=== PATIENT | male | born 1950 | race Caucasian/White ===

== ENCOUNTER 2017-10-05 07:17 | Day surgery (SDC) | payer OTHER ==
[2017-10-05] MEDS ORDERED: ALCAINE or OPHTHETIC 1 DOSE AFFEYE ONE (07:33)
[2017-10-05] MEDS ORDERED: ALPHAGAN-P OPHTH 1 DOSE AFFEYE ONE (07:38)
[2017-10-05] MEDS ORDERED: TETRACAINE 0.5% OPHTH 1 DOSE AFFEYE ONE (08:57)
[2017-10-05 12:40] VITALS: BP 137/80
== END 2017-10-05 09:15 | disposition home or self-care (01) ==
LOC: SURG1 07:17
PROVIDERS: ATTEND Ophthalmology
PROC: 08QC3ZZ Repair Right Iris, Percutaneous Approach (ICD-10-PCS; principal; 2017-10-05 11:45)
DX: H40.1110 Primary open-angle glaucoma, right eye, stage unspecified (principal)
CPT/HCPCS: 65855

== ENCOUNTER 2017-11-02 08:11 | Day surgery (SDC) | payer OTHER ==
[2017-11-02] MEDS ORDERED: TETRACAINE 0.5% OPHTH 1 DOSE AFFEYE ONE ×2 (08:20→08:51)
[2017-11-02] MEDS ORDERED: ALPHAGAN-P OPHTH 1 DOSE AFFEYE ONE (08:20)
[2017-11-02 10:32] VITALS: BP 140/88
== END 2017-11-02 09:00 | disposition home or self-care (01) ==
LOC: SURG1 08:11
PROVIDERS: ATTEND Ophthalmology
PROC: 08QD3ZZ Repair Left Iris, Percutaneous Approach (ICD-10-PCS; principal; 2017-11-02 10:45)
DX: H40.1122 Primary open-angle glaucoma, left eye, moderate stage (principal)
CPT/HCPCS: 65855

== ENCOUNTER 2025-02-02 22:16 | Inpatient (IN) ==
[2025-02-02 22:53] VITALS: BMI 24.9
[2025-02-03 00:14] LABS: BILIRUBIN,URINE 2+ (NEGATIVE); BLOOD/HEMOGLOBIN,URINE 1+ (NEGATIVE); GLUCOSE, URINE 2+ (NEGATIVE); KETONES,URINE 1+ (NEGATIVE); LEUKOCYTE ESTERASE ,URINE 1+ (NEGATIVE); NITRITES,URINE NEGATIVE (NEGATIVE); PROTEIN,URINE 3+ (NEGATIVE); UROBILINOGEN,URINE 3+ (NORMAL)
[2025-02-03 00:21] LABS: APPEARANCE,URINE CLEAR (CLEAR); COLOR,URINE AMBER (YELLOW)
[2025-02-03 00:22] LABS: BACTERIA,URINE TRACE /HPF (NEGATIVE); RBC,URINE NONE SEEN /HPF (0-3); SQUAMOUS EPITHELIAL CELL,UR FEW /HPF (NEGATIVE)
--- NOTE | 2025-02-03 00:31 | DR.URIAD ---
HPI Time Seen Time Seen by Provider: 02/02/25 23:10 PCP Primary Care Physician: Dr. Castillo HPI Comment HPI Comment: Patient brought to ER with 4-day history of vague abdominal discomfort complaints, nausea and vomiting. Patient also has had some sinus congestion with runny nose. Vomiting intensified today along with some fever. Patient has been having some forgetfulness and possibly confusion but family clarified and described it more as forgetful. Complaint Chief Complaint:: Patient brought in er via WC with complaints of sinus congestion and vomiting. Pt states he went to a on thursday and thursday night began throwing up. Pt states he has had intermittent episodes on vomiting since thursday. Pt also complains of runny nose, sinus pressure, and fever. Per pts family pt has been slightly confused and weak. Self Treatment fo Chief Complaint: Tylenol around 2129 COVID-19 Coronavirus risk:travel/contact w/high risk person: No Has patient experienced Coronavirus symptoms: Yes Coronavirus symptoms experienced: Fever Source History Provided: Patient and Family Member Mode of Arrival Mode of Arrival: Wheelchair Timing Onset of Chief Complaint: 01/30/25 PMH PMH Past Medical History: Yes Past Medical History: Diabetes, GERD and Hypertension Past Surgical History: Yes Surgical History: Tonsillectomy Past Surgical History Comment: Cataract surgery Family History History of Family Medical Conditions: Yes Family Medical History: Hypertension Social History Does patient currently use any type of tobacco product: No Have you used tobacco products in the last 12 months: No Type of Tobacco Use: None Does any household member use tobacco: No Alcohol Use: None Do you use any recreational Drugs:: No Lives With: Family Lives Where: Home Travel Risk Coronavirus risk:travel/contact w/high risk person: No Has patient experienced Coronavirus symptoms: Yes Coronavirus symptoms experienced: Fever Infectious screening Have you traveled outside the country in the last 6 months?: No Isolation: Standard ROS Review of Systems Constitutional: See HPI and Fever Eyes: No Symptoms Reported ENTM: No Symptoms Reported Respiratoy: No Symptoms Reported Cardiovascular: No Symptoms Reported Gastrointestinal/Abdominal: See HPI, Abdominal Pain, Nausea and Vomiting; negative Constipation or Diarrhea Genitourinary: No Symptoms Reported Neurological: No Symptoms Reported Musculoskeletal: No Symptoms Reported Integumentary: No Symptoms Reported Hematologic/Lymphatic: No Symptoms Reported Endocrine: No Symptoms Reported Psychiatric: No Symptoms Reported All Other Systems: Reviewed and Negative PE Vital Signs Vitals: Vital Signs Temperature 98.3 F Temperature 100.2 F Pulse Rate [Left] 78 Pulse Rate 107 Respiratory Rate 19 Blood Pressure [Left Arm] 115/61 Blood Pressure 131/66 O2 Sat by Pulse Oximetry 97 O2 Sat by Pulse Oximetry 93 General Limitations: No Limitations General Appearance: Alert and In No Apparent Distress Head Head Exam: Normal Inspection Eyes Eye exam: Normal Appearance ENT ENT Exam: Normal Exam External Ear Exam: Normal External Inspection TM/Canal Exam: Bilateral: Normal Nose Exam: Other (Nasal turbinate erythema with clear discharge) Mouth Exam: Normal Inspection Throat Exam: Normal Inspection Neck Neck Exam: Normal Inspection Chest Chest Inspection: Normal Inspection Respiratory Respiratory Exam: Normal Lung Sounds Bilat Respiratory Exam: Bilateral: Clear to Auscultation Cardiovascular Cardiovascular Exam: Regular Rate and Normal Rhythm Abdominal Exam Abdominal Exam: Normal Inspection, Normal Bowel Sounds, Soft and Tenderness (Mild right upper quadrant tenderness to deep palpation); negative Distention, Guarding, Rebound or Rigidity Extremeties Extremities Exam: Normal Inspection Back Back Exam: Normal Inspection Neurologic Neurological Exam: Alert and Oriented X3 Psychiatric Psychiatric Exam: Normal Affect and Normal Mood Skin Skin Exam: Warm, Dry, Intact and Normal Color COURSE Treatment Treatment: Patient has had some improvement with fluids and magnesium. He does have an elevated white count and found to have cholelithiasis and CT. Given hyperbilirubinemia and neutrophilia along with fevers and feel like coverage for possible cholangitis even though not seen in CT might be prudent. Consultation Called: 03:26 Consultation Comments: Discussed case with Dr. Castillo and he is agreeable to admission with cefepime and Flagyl. ROR Labs Reviewed 02/03/25 00:42 02/03/25 00:42 Laboratory: WBC 23.4 X10^3/uL (3.6-10.0) H 02/03/25 00:42 RBC 4.86 X10^6/uL (4.7-6.0) 02/03/25 00:42 Hgb 14.3 g/dL (13.5-18.0) 02/03/25 00:42 Hct 41.5 % (42.0-54.0) L 02/03/25 00:42 MCV 85.5 fL (80.0-100.0) 02/03/25 00:42 MCH 29.4 pg (27.0-34.0) 02/03/25 00:42 MCHC 34.4 g/dL (33.0-35.0) 02/03/25 00:42 RDW 13.8 % (11.6-16.5) 02/03/25 00:42 Plt Count 223 X10^3/uL (150.0-450.0) 02/03/25 00:42 Plt Count Comment Adequate (ADEQUATE) 02/03/25 00:42 MPV 7.9 fL (7.4-11.0) 02/03/25 00:42 Neut % (Auto) 90.6 % (42.0-75.0) H 02/03/25 00:42 Lymph % (Auto) 2.1 % (21.0-51.0) L 02/03/25 00:42 [place] % (Auto) 7.1 % (0.0-13.0) 02/03/25 00:42 Eos % (Auto) 0.0 % (0.9-2.9) L 02/03/25 00:42 Baso % (Auto) 0.2 % (0.2-1.0) 02/03/25 00:42 Neut # (Auto) 21.1 x10^3/uL (2.2-4.8) H 02/03/25 00:42 Lymph # (Auto) 0.5 X10^3/uL (1.3-2.9) L 02/03/25 00:42 [place] # (Auto) 1.7 x10^3/uL (0.3-0.8) H 02/03/25 00:42 Eos # (Auto) 0.0 x10^3/uL (0.0-0.2) 02/03/25 00:42 Baso # (Auto) 0.1 X10^3/uL (0.0-0.1) 02/03/25 00:42 Absolute Nucleated RBC 0.0 /100WBC 02/03/25 00:42 Total Counted 100 02/03/25 00:42 Neutrophils % (Manual) 83 % (39-76) H 02/03/25 00:42 Band Neutrophils % 7 % (0-10) 02/03/25 00:42 Lymphocytes % (Manual) 3 % (13-43) L 02/03/25 00:42 Monocytes % (Manual) 7 % (4-9) 03 00:42 Plt Morphology Comment Normal (NORMAL) 02/03/25 00:42 RBC Morphology Normal (NORMAL) 02/03/25 00:42 Sodium 137 mmol/L (136-145) 02/03/25 00:42 Corrected Sodium 139 mmol/L (136-145) 02/03/25 00:42 Potassium 3.7 mmol/L (3.5-5.1) 02/03/25 00:42 Chloride 101 mmol/L (98-107) 02/03/25 00:42 Carbon Dioxide 27.0 mmol/L (21-32) 02/03/25 00:42 BUN 23 mg/dL (7-18) H 02/03/25 00:42 Creatinine 1.31 mg/dL (0.70-1.30) H 02/03/25 00:42 Est GFR (MDRD) Af Amer > 60 (>60) 02/03/25 00:42 Est GFR (MDRD) Non-Af 57 (>60) L 02/03/25 00:42 Glucose 179 mg/dL (65-99) H 02/03/25 00:42 Lactic Acid 1.2 mmol/L (0.4-2.0) 02/03/25 01:49 Calcium 9.2 mg/dL (8.5-10.1) 02/03/25 00:42 Corrected Calcium TNP 02/03/25 00:42 Magnesium 1.6 mg/dL (2.0-2.9) L 02/03/25 00:42 Total Bilirubin 3.30 mg/dL (0.2-1.0) H 02/03/25 00:42 AST 264 Units/L (15-37) H 02/03/25 00:42 ALT 320 Units/L (12-78) H 02/03/25 00:42 Alkaline Phosphatase 291 Units/L (46-116) H 02/03/25 00:42 Total Protein 6.9 g/dL (6.4-8.2) 02/03/25 00:42 Albumin 3.4 g/dL (3.4-5.0) 02/03/25 00:42 Globulin 3.5 g/dL (2.5-4.5) 02/03/25 00:42 Albumin/Globulin Ratio 1.0 Ratio (1.1-2.1) L 02/03/25 00:42 Specimen Type Clean catch urine 02/02/25 23: Urine Color Sangeetha (YELLOW) 02/02/25 23:25 Urine Appearance Clear (CLEAR) 02/02/25 23: Urine pH 5.0 (5.0 - 8.0) 02/02/25 23: Ur Specific [place] 1.015 (1.000-1.030) 02/02/25 23: Urine Protein 3+ (NEGATIVE) 02/02/25 23: Urine Glucose (UA) 2+ (NEGATIVE) 02/02/25: Urine Ketones 1+ (NEGATIVE) 02/02/25: Urine Blood 1+ (NEGATIVE) 02/02/25: Urine Nitrite Negative (NEGATIVE) 02/02/25 23: Urine Bilirubin 2+ (NEGATIVE) 02/02/25: Urine Urobilinogen 3+ (NORMAL) 02/02/25 23: Ur Leukocyte Esterase 1+ (NEGATIVE) 02/02/25 23:25 Urine RBC None seen /HPF (0-3) 02/02/25 23:25 Urine WBC 0-2 /HPF (0-5) 02/02/25 23:25 Ur Squamous Epith Cells Few /HPF (NEGATIVE) 02/02/25 23:25 Amorphous Sediment Trace /HPF (NEGATIVE) 02/02/25 23:25 Urine Bacteria Trace /HPF (NEGATIVE) 02/02/25 23:25 Urine Mucus Few /HPF (NEGATIVE) 02/02/25 23:25 Ur Culture Indicated? No/not indicated 02/02/25 23:25 SARS-CoV-2 (PCR) Negative (NEGATIVE) 02/02/25 23:17 Influenza Type A (PCR) Negative (NEGATIVE) 02/02/25 23:17 Influenza Type B (PCR) Negative (NEGATIVE) 02/02/25 23:17 RSV (PCR) Negative (NEGATIVE) 02/02/25 23:17 Opioid Opioid Risk Tool Age (Juan Antonio box if 16-45): No History of Preadolescent Sexual Abuse: No Total: 0 Total Score Risk Category: Low Risk Copyright: Maximino GIPSON predicting aberrant behaviors Discharge Plan Diagnosis Discharge Problem: Hyperbilirubinemia, Elevated liver function tests, Cholelithiasis, Acute neutrophilia Discharge Plan Patient Disposition: 09 ADMITTED INPATIENT Condition: Stable Prescriptions: No Action pantoprazole 40 mg tablet,delayed release (DR/EC) 40 mg PO QDAY Qty: 90 3RF valsartan 160 mg tablet 160 mg PO QDAY Qty: 30 3RF Health Concerns: Post Hospitalization: new medications and changes needed to prevent readmission or further decline. Pt educated and given instructions on all concerns. Plan of Treatment: Continue with present treatment and follow up plan. Pt is to keep follow up appointment as instructed and take medications as ordered. Orders to Discharge Patient Discharge Orders: Transfer (Routine); Ordered 02/03/25 Ordered By: Rito Murrell Follow ups/Referrals Follow ups/Referrals: Joey Castillo MD [Primary Care Provider] - 3 days Instructions Stand Alone Forms: Find Help Web Site, Post Hospital Follow Up Care
[2025-02-03 00:58] LABS: BASOPHILS # (AUTO) 0.1 X10^3/uL (0.0-0.1); BASOPHILS % (AUTO) 0.2 % (0.2-1.0); HEMATOCRIT 41.5 % (42.0-54.0); HEMOGLOBIN 14.3 g/dL (13.5-18.0); LYMPHOCYTES # (AUTO) 0.5 X10^3/uL (1.3-2.9); LYMPHOCYTES % (AUTO) 2.1 % (21.0-51.0); MEAN CORPUSCULAR HEMOGLOBIN 29.4 pg (27.0-34.0); MEAN CORPUSCULAR HGB CONC 34.4 g/dL (33.0-35.0); MEAN CORPUSCULAR VOLUME 85.5 fL (80.0-100.0); MEAN PLATELET VOLUME 7.9 fL (7.4-11.0); MONOCYTES # (AUTO) 1.7 x10^3/uL (0.3-0.8); MONOCYTES % (AUTO) 7.1 % (0.0-13.0); NEUTROPHILS # (AUTO) 21.1 x10^3/uL (2.2-4.8); NEUTROPHILS % (AUTO) 90.6 % (42.0-75.0); PLATELET COUNT 223 X10^3/uL (150.0-450.0); RED BLOOD COUNT 4.86 X10^6/uL (4.7-6.0); RED CELL DISTRIBUTION WIDTH 13.8 % (11.6-16.5); WHITE BLOOD COUNT 23.4 X10^3/uL (3.6-10.0)
[2025-02-03 01:14] LABS: ALANINE AMINOTRANSFERASE 320 Units/L (12-78); ALBUMIN 3.4 g/dL (3.4-5.0); ALKALINE PHOSPHATASE 291 Units/L (46-116); ASPARTATE AMINO TRANSFERASE 264 Units/L (15-37); BLOOD UREA NITROGEN 23 mg/dL (7-18); CALCIUM 9.2 mg/dL (8.5-10.1); CHLORIDE 101 mmol/L (98-107); COR NA(FOR HYPERGLY) 139 mmol/L (136-145); CREATININE 1.31 mg/dL (0.70-1.30); GLUCOSE 179 mg/dL (65-99); MAGNESIUM 1.6 mg/dL (2.0-2.9); POTASSIUM 3.7 mmol/L (3.5-5.1); SODIUM 137 mmol/L (136-145); TOTAL PROTEIN 6.9 g/dL (6.4-8.2); eGFR NON BLACK RACES 57 (>60)
[2025-02-03 01:17] LABS: BAND NEUTROPHILS % 7 % (0-10)
[2025-02-03 01:18] LABS: PLATELET MORPHOLOGY COMMENT NORMAL (NORMAL)
[2025-02-03] MEDS: MAGNESIUM SULFATE 1 GRAM/100 mL PREMIX 1 G/100 ML BAG IV ONE (01:44)
[2025-02-03] MEDS: NS 500 ML IV 500 ML IV ONE (01:44)
--- NOTE | 2025-02-03 02:23 | CT ---
PROCEDURE: CT Abdomen and Pelvis without IV Contrast.HISTORY: Patient brought in er via with complaints of sinus congestion and vomiting, cough, elevated white count; DM, HTN, GERD SX: TONSILS, CATARACT .TECHNIQUE: Axial images were performed through the abdomen and pelvis without the administration of IV contrast with multiplanar reformations . Oral contrast was notadministered . Dose reduction techniques including Automated Exposure Control (AEC) and adjustment of mA and kV were utilized ..COMPARISON: None.TECHNICAL QUALITY: Satisfactory.FINDINGS:Clear lung bases. Liver, spleen, adrenals, and pancreas show no significant abnormality. Kidneys show no stones or obstruction. Small stones in the fundus of the gallbladder with no inflammation and normal biliary tree. No ascites or pneumoperitoneum. Trace atherosclerosis aorta. No lymphadenopathy. 2 cm duodenal diverticulum with air-fluid level. No bowel obstruction or inflammation. Normal appendix. No pelvic masses or free fluid normal urinary bladder. No acute bony abnormality.IMPRESSION:Cholelithiasis. Small duodenal diverticulum. No other significant abnormality identified.THIS IS AN ELECTRONICALLY VERIFIED FINAL REPORT02/03/2025 2:19 AM - Electronically signed by Umesh Alcazar MD
[2025-02-03] MEDS: FLAGYL TAB 250 MG PO ONE (03:36)
[2025-02-03] MEDS: MAXIPIME VIAL 1 GRAM 1 G in NS 50 ML IV 50 ML IV ONE (03:39)
[2025-02-03] MEDS ORDERED: MAXIPIME VIAL 1 GRAM IM SCH (04:00)
[2025-02-03] MEDS ORDERED: CONSULT PHARMACY - POTASSIUM & MAGNESIUM XX SCH (04:25)
[2025-02-03] MEDS: NS 1,000 ML IV 1,000 ML IV SCH (04:50)
[2025-02-03] MEDS ORDERED: FLAGYL IV PREMIX 500 MG BAG 500 MG/100 ML BAG IV SCH (05:00)
[2025-02-03 06:27] LABS: BASOPHILS # (AUTO) 0.1 X10^3/uL (0.0-0.1); BASOPHILS % (AUTO) 0.3 % (0.2-1.0); HEMATOCRIT 40.3 % (42.0-54.0); LYMPHOCYTES % (AUTO) 4.4 % (21.0-51.0); MEAN CORPUSCULAR HEMOGLOBIN 29.8 pg (27.0-34.0); MEAN CORPUSCULAR HGB CONC 34.7 g/dL (33.0-35.0); MEAN CORPUSCULAR VOLUME 85.8 fL (80.0-100.0); MEAN PLATELET VOLUME 8.4 fL (7.4-11.0); MONOCYTES # (AUTO) 1.8 x10^3/uL (0.3-0.8); MONOCYTES % (AUTO) 8.1 % (0.0-13.0); NEUTROPHILS # (AUTO) 19.2 x10^3/uL (2.2-4.8); NEUTROPHILS % (AUTO) 87.2 % (42.0-75.0); PLATELET COUNT 221 X10^3/uL (150.0-450.0); RED CELL DISTRIBUTION WIDTH 13.9 % (11.6-16.5)
[2025-02-03 06:37] LABS: ALANINE AMINOTRANSFERASE 304 Units/L (12-78); ALBUMIN 3.3 g/dL (3.4-5.0); ALKALINE PHOSPHATASE 275 Units/L (46-116); ASPARTATE AMINO TRANSFERASE 204 Units/L (15-37); BLOOD UREA NITROGEN 22 mg/dL (7-18); CALCIUM 9.1 mg/dL (8.5-10.1); CARBON DIOXIDE 28.6 mmol/L (21-32); CHLORIDE 102 mmol/L (98-107); COR CA(FOR HYPOALB) 9.7 mg/dL (8.5-10.1); COR NA(FOR HYPERGLY) 140 mmol/L (136-145); CREATININE 1.39 mg/dL (0.70-1.30); GLUCOSE 186 mg/dL (65-99); POTASSIUM 4.5 mmol/L (3.5-5.1); SODIUM 138 mmol/L (136-145); TOTAL PROTEIN 6.8 g/dL (6.4-8.2); eGFR NON BLACK RACES 53 (>60)
[2025-02-03 07:11] LABS: PLATELET MORPHOLOGY COMMENT NORMAL (NORMAL)
[2025-02-03 07:12] LABS: BAND NEUTROPHILS % 10 % (0-10)
[2025-02-03] MEDS: NS 50 ML IV 50 ML IV ONE (07:38)
--- NOTE | 2025-02-03 07:45 | RAD ---
EXAM: Portable chest HISTORY: Cough, vomiting, leukocytosis COMPARISON: None FINDINGS: Heart size is normal. Moraima are normal. Lung sarmiento are clear. No pleural effusion or pneumothora x identified. Bony thorax is unremarkable. IMPRESSION: No significant abnormality identified THIS IS AN ELECTRONICALLY VERIFIED FINAL REPORT 02/03/2025 7:42 AM - Electronically signed by Nii Emery MD
[2025-02-03] MEDS: NS 1,000 ML IV 1,000 ML with MAGNESIUM SULFATE 50% INJ VIAL 2 G IV SCH (10:36)
[2025-02-03] MEDS: FLAGYL IV PREMIX 500 MG BAG 500 MG/100 ML BAG IV SCH (10:37)
[2025-02-03] MEDS ORDERED: PHARMACY CONSULT - VANCOMYCIN XX SCH (14:00)
[2025-02-03] MEDS: VANCOMYCIN IV *PREMIX 1.25 G/250 ML BAG 1.25 G/250 ML PIGGYBACK IV ONE (14:46)
[2025-02-03] MEDS ORDERED: MAXIPIME VIAL 1 GRAM 1 G in NS 50 ML IV 50 ML IV SCH (15:00)
--- NOTE | 2025-02-03 15:12 | US ---
EXAM: RIGHT UPPER QUADRANT ULTRASOUND HISTORY: ELEVATED LIVER ENZYMES; COMPARISON: CT from same date. TECHNIQUE: Ultrasound of the right upper quadrant was performed. Color and spectral doppler imaging was utilized . FINDINGS: Pancreas: Visualized portions are unremarkable. Liver/bile ducts: Homogeneous parenchyma. No focal liver lesion identified. No intrahepatic biliary dilatation. Comm on bile duct measures 4 mm. Normal hepatopetal portal venous flow. Gallbladder: Mildly distended. Layering sludge and gallstones in the gallbladder. Mild wall thickening with trac e pericholecystic fluid. Right kidney: Unremarkable. No hydronephrosis or shadowing calculi. IMPRESSION: 1. Cholelithiasis with gallbladder wall thickening and pericholecystic fluid, suspicious for cholecys titis. 2. No biliary dilatation. THIS IS AN ELECTRONICALLY VERIFIED FINAL REPORT 02/03/2025 3:08 PM - Electronically signed by Ken Burk MD
--- NOTE | 2025-02-03 17:04 | MRI ---
EXAM:MRI ABDOMEN WITHOUT CONTRAST WITH MRCPHISTORY:abd pain; .COMPARISON:Ultrasound of the gallbladder February 03, 2025.TECHNIQUE:Using a phased-array coil, MRI of the abdomen was obtained without contrast. In addition to standard imaging, MRCP sequences were acquired including 3D reconstructions.FINDINGS:MRCP:GALLBLADDER: Gallbladder shows multiple stones without definite surrounding gallbladder inflammatory changesHEPATOBILIARY: There are at least 2 stones seen in the common bile duct including a proximal stone measuring 7 mm and a more distal stone in the mid duct measuring up to 7 mm. Intrahepatic ectasia is mildPANCREATIC DUCT: There is traditional ductal anatomy. The pancreatic duct is normal in caliber without ductal irregularity to suggest chronic pancreatitis.MRI:LOWER THORAX: NormalLIVER: The liver shows no focal mass. There are no morphologic changes of cirrhosis. There is no evidence of steatosis on in and out of phase imaging.SPLEEN: NormalPANCREAS: Normal appearance of the parenchyma.KIDNEYS: NormalADRENAL GLANDS: NormalGI TRACT: Normal course and caliber, though examination not tailored for evaluation of the bowel.LYMPH NODES: No enlarged nodesVESSELS: NormalPERITONEUM / RETROPERITONEUM: No ascitesBONES: NormalIMPRESSION:Gallstones are noted. There are at least 2 stones in the common bile duct each measuring 7 mm. This leads to only mild intrahepatic biliary ectasiaTHIS IS AN ELECTRONICALLY VERIFIED FINAL REPORT02/03/2025 5:00 PM - Electronically signed by Ken Benson MD
--- NOTE | 2025-02-03 19:36 | DR.H&P ---
H&P History & Physical for Day of: H&P Date: 02/03/25 Chief Complaint Chief Complaint: abdominal pain, N/V History of Present Illness History of Present Illness: Patient is a 74-year-old male with a past medical history of GERD and hypertension presented with 4-day history of abdominal discomfort, nausea and vomiting. He also had some upper respiratory symptoms. He started having fever and chills and possible confusion. Patient was brought to the ER for further evaluation. ER workup showed elevated WBC, creatinine and LFTs. His bilirubin was also elevated. UA was negative. COVID/flu/RSV were negative. Chest x-ray was negative. CT abdomen pelvis showed cholelithiasis. Patient was started on IV fluids, pain control and antibiotics. He was admitted for further evaluation. Dr. Olmos with general surgery was consulted. Labs/imaging reviewed: -WBC 22 hemoglobin 14 sodium 138 BUN 22 creatinine 1.39 glucose 186 AST 204 ALT 304 alk phos 275 bilirubin 4.1 -Chest x-ray negative, UA negative -CTAP results reviewed Plan: Follow surgery recommendations. Continue IV antibiotics cefepime and Flagyl, fluids and pain control. Continue antiemetics as needed. Diet as per surgery. Replace electrolytes as per protocol. Patient is currently NPO. Gallbladder ultrasound ordered. Hepatitis panel ordered. Monitor a.m. labs and imaging. Time spent on clinical assessment, reviewing labs and imaging, decision making, and documentation greater than 45 minutes. Past Medical History Past Medical History: Diabetes, GERD and Hypertension Past Surgical History Surgical History: Tonsillectomy and Other Family History Family Medical History: Diabetes Mellitus, PR and Coronary Artery Disease Social History Does patient currently use any type of tobacco product: No Have you used tobacco products in the last 12 months: No Type of Tobacco Use: None Does any household member use tobacco: No Alcohol Use: None Drug Use: None Allergies Allergies Allergy/AdvReac Type Severity Reaction Status Date / Time Penicillins Allergy Verified 05/09/24 10:12 Labs 02/03/25 05:38 02/03/25 05:38 Labs: Laboratory WBC 22.0 X10^3/uL (3.6-10.0) H 02/03/25 05:38 RBC 4.70 X10^6/uL (4.7-6.0) 02/03/25 05:38 Hgb 14.0 g/dL (13.5-18.0) 02/03/25 05:38 Hct 40.3 % (42.0-54.0) L 02/03/25 05:38 MCV 85.8 fL (80.0-100.0) 02/03/25 05:38 MCH 29.8 pg (27.0-34.0) 02/03/25 05:38 MCHC 34.7 g/dL (33.0-35.0) 02/03/25 05:38 RDW 13.9 % (11.6-16.5) 02/03/25 05:38 Plt Count 221 X10^3/uL (150.0-450.0) 02/03/25 05:38 Plt Count Comment Adequate (ADEQUATE) 02/03/25 05:38 MPV 8.4 fL (7.4-11.0) 02/03/25 05:38 Neut % (Auto) 87.2 % (42.0-75.0) H 02/03/25 05:38 Lymph % (Auto) 4.4 % (21.0-51.0) L 02/03/25 05:38 [place] % (Auto) 8.1 % (0.0-13.0) 02/03/25 05:38 Eos % (Auto) 0.0 % (0.9-2.9) L 02/03/25 05:38 Baso % (Auto) 0.3 % (0.2-1.0) 02/03/25 05:38 Neut # (Auto) 19.2 x10^3/uL (2.2-4.8) H 02/03/25 05:38 Lymph # (Auto) 1.0 X10^3/uL (1.3-2.9) L 02/03/25 05:38 [place] # (Auto) 1.8 x10^3/uL (0.3-0.8) H 02/03/25 05:38 Eos # (Auto) 0.0 x10^3/uL (0.0-0.2) 02/03/25 05:38 Baso # (Auto) 0.1 X10^3/uL (0.0-0.1) 02/03/25 05:38 Absolute Nucleated RBC 0.1 /100WBC 02/03/25 05:38 Total Counted 100 02/03/25 05:38 Neutrophils % (Manual) 81 % (39-76) H 02/03/25 05:38 Band Neutrophils % 10 % (0-10) 02/03/25 05:38 Lymphocytes % (Manual) 2 % (13-43) L 02/03/25 05:38 Monocytes % (Manual) 7 % (4-9) 02/03/25 05:38 Plt Morphology Comment Normal (NORMAL) 02/03/25 05:38 RBC Morphology Normal (NORMAL) 02/03/25 05:38 Sodium 138 mmol/L (136-145) 02/03/25 05:38 Corrected Sodium 140 mmol/L (136-145) 02/03/25 05:38 Potassium 4.5 mmol/L (3.5-5.1) 02/03/25 05:38 Chloride 102 mmol/L (98-107) 02/03/25 05:38 Carbon Dioxide 28.6 mmol/L (21-32) 02/03/25 05:38 BUN 22 mg/dL (7-18) H 02/03/25 05:38 Creatinine 1.39 mg/dL (0.70-1.30) H 02/03/25 05:38 Est GFR (MDRD) Af Amer > 60 (>60) 02/03/25 05:38 Est GFR (MDRD) Non-Af 53 (>60) L 02/03/25 05:38 Glucose 186 mg/dL (65-99) H 02/03/25 05:38 POC Glucose (mg/dL) 116 mg/dL (65-99) H 02/03/25 16:19 Lactic Acid 1.2 mmol/L (0.4-2.0) 02/03/25 01:49 Calcium 9.1 mg/dL (8.5-10.1) 02/03/25 05:38 Corrected Calcium 9.7 mg/dL (8.5-10.1) 02/03/25 05:38 Magnesium 1.6 mg/dL (2.0-2.9) L 02/03/25 00:42 Total Bilirubin 4.10 mg/dL (0.2-1.0) H 02/03/25 05:38 AST 204 Units/L (15-37) H 02/03/25 05:38 ALT 304 Units/L (12-78) H 02/03/25 05:38 Alkaline Phosphatase 275 Units/L (46-116) H 02/03/25 05:38 Total Protein 6.8 g/dL (6.4-8.2) 02/03/25 05:38 Albumin 3.3 g/dL (3.4-5.0) L 02/03/25 05:38 Globulin 3.5 g/dL (2.5-4.5) 02/03/25 05:38 Albumin/Globulin Ratio 0.9 Ratio (1.1-2.1) L 02/03/25 05:38 Specimen Type Clean catch urine 02/02/25 23: Urine Color Sangeeth[place] (YELLOW) 02/02/25: Urine Appearance Clear (CLEAR) 02/02/25: Urine pH 5.0 (5.0 - 8.0) 02/02/25 23:25 Ur Specific [place] 1.015 (1.000-1.030) 02/02/25: Urine Protein 3+ (NEGATIVE) 02/02/25: Urine Glucose (UA) 2+ (NEGATIVE) 02/02/25: Urine Ketones 1+ (NEGATIVE) 02/02/25: Urine Blood 1+ (NEGATIVE) 02/02/25: Urine Nitrite Negative (NEGATIVE) 02/02/25: Urine Bilirubin 2+ (NEGATIVE) 02/02/25: Urine Urobilinogen 3+ (NORMAL) 02/02/25 23:25 Ur Leukocyte Esterase 1+ (NEGATIVE) 02/02/25:25 Urine RBC None seen /HPF (0-3) 02/02/25 23:25 Urine WBC 0-2 /HPF (0-5) 02/02/25 23:25 Ur Squamous Epith Cells Few /HPF (NEGATIVE) 02/02/25: Amorphous Sediment Trace /HPF (NEGATIVE) 02/02/25 23: Urine Bacteria Trace /HPF (NEGATIVE) 02/02/25 23:25 Urine Mucus Few /HPF (NEGATIVE) 02/02/25 23:25 Ur Culture Indicated? No/not indicated 02/02/25 23: SARS-CoV-2 (PCR) Negative (NEGATIVE) 02/02/25 23: Influenza Type A (PCR) Negative (NEGATIVE) 02/02/25 23:17 Influenza Type B (PCR) Negative (NEGATIVE) 02/02/25 23:17 RSV (PCR) Negative (NEGATIVE) 02/02/25 23:17 Review of Systems Constitutional: No Symptoms Reported Eyes: No Symptoms Reported ENT: No Symptoms Reported Respiratory: No Symptoms Reported Cardiovascular: No Symptoms Reported Gastrointestinal: Nausea, Vomiting and Abdominal Pain Genitourinary: No Symptoms Reported Musculoskeletal: No Symptoms Reported Skin: No Symptoms Reported Neurological: Confusion Physical Exam Vital Signs: Vital Signs Temperature 99.0 F Temperature 98.1 F Pulse Rate [Left] 75 Pulse Rate [Left] 73 Respiratory Rate 18 Respiratory Rate 19 Blood Pressure [Right Arm] 129/62 Blood Pressure [Right Arm] 118/57 O2 Sat by Pulse Oximetry 94 O2 Sat by Pulse Oximetry 97 Oriented: Normal Eyes: Normal Ear: Normal Nose: Normal Throat: Normal Respiratory: Clear Throughout Cardiovascular: Normal : Normal Auscultation: Bowel Sounds: Normal Palpation: Normal Tenderness: Normal Skin: Normal Musculoskeletal: Normal Psychiatric: Normal Mood Description: Calm and Appropriate Affect: Normal Speech Pattern: Clear and Appropriate Assessment/Plan (1) Dehydration: Status: Acute (2) Hyperbilirubinemia: Status: Acute (3) Elevated liver function tests: Status: Acute (4) Generalized weakness: Status: Acute (5) Cholelithiasis: Status: Acute (6) Hypertension: Qualifiers: Hypertension type: primary hypertension Qualified Code(s): I10 - Essential (primary) hypertension Status: Acute Review H&P Reviewed: Yes Patient was examined?: Yes
[2025-02-04] MEDS: ZOFRAN INJ 4 MG VIAL IVP PRN (02:59)
[2025-02-04 06:14] LABS: BASOPHILS % (AUTO) 0.2 % (0.2-1.0); EOSINOPHILS % (AUTO) 0.2 % (0.9-2.9); HEMATOCRIT 42.4 % (42.0-54.0); HEMOGLOBIN 14.6 g/dL (13.5-18.0); LYMPHOCYTES # (AUTO) 0.5 X10^3/uL (1.3-2.9); LYMPHOCYTES % (AUTO) 3.1 % (21.0-51.0); MEAN CORPUSCULAR HEMOGLOBIN 29.7 pg (27.0-34.0); MEAN CORPUSCULAR HGB CONC 34.5 g/dL (33.0-35.0); MEAN CORPUSCULAR VOLUME 86.2 fL (80.0-100.0); MEAN PLATELET VOLUME 8.1 fL (7.4-11.0); MONOCYTES # (AUTO) 1.1 x10^3/uL (0.3-0.8); MONOCYTES % (AUTO) 6.5 % (0.0-13.0); NEUTROPHILS # (AUTO) 15.2 x10^3/uL (2.2-4.8); PLATELET COUNT 233 X10^3/uL (150.0-450.0); RED BLOOD COUNT 4.92 X10^6/uL (4.7-6.0); RED CELL DISTRIBUTION WIDTH 14.2 % (11.6-16.5); WHITE BLOOD COUNT 16.9 X10^3/uL (3.6-10.0)
[2025-02-04 06:31] LABS: ALANINE AMINOTRANSFERASE 217 Units/L (12-78); ALBUMIN 3.2 g/dL (3.4-5.0); ALKALINE PHOSPHATASE 269 Units/L (46-116); ASPARTATE AMINO TRANSFERASE 99 Units/L (15-37); BLOOD UREA NITROGEN 15 mg/dL (7-18); CALCIUM 8.7 mg/dL (8.5-10.1); CARBON DIOXIDE 23.6 mmol/L (21-32); CHLORIDE 102 mmol/L (98-107); COR CA(FOR HYPOALB) 9.3 mg/dL (8.5-10.1); COR NA(FOR HYPERGLY) 139 mmol/L (136-145); CREATININE 1.08 mg/dL (0.70-1.30); GLUCOSE 177 mg/dL (65-99); POTASSIUM 3.9 mmol/L (3.5-5.1); SODIUM 137 mmol/L (136-145); eGFR NON BLACK RACES > 60 (>60)
[2025-02-04 08:02] VITALS: RESP 18
[2025-02-04] MEDS: VANCOMYCIN HCL 1 G in D5W 250 ML IV 250 ML IV SCH (09:02)
[2025-02-04] MEDS ORDERED: MORPHINE SULFATE INJ 2 MG INJ IVP PRN (10:20)
[2025-02-04] MEDS ORDERED: NS 250 ML IV 25 ML IV PRN (11:51)
[2025-02-04] MEDS: ZOSYN VIAL 3.375 GRAMS 3.375 G in NS 100 ML IV 100 ML IV SCH (12:07)
[2025-02-04] MEDS: DIOVAN TAB 160 MG PO SCH (12:10)
[2025-02-04] MEDS: PROTONIX TAB 40 MG PO SCH (12:10)
[2025-02-04] MEDS: TYLENOL 500 MG TAB EXTRA STRENGTH PO ONE (12:12)
[2025-02-04 12:48] VITALS: BP 130/74; PULSE 111; TEMP 101.1; O2SAT 97
[2025-02-05] MEDS ORDERED: PHARMACY COMMENT IV ONE (08:30)
== END 2025-02-04 13:45 | disposition short-term general hospital (02) | DRG 446 ==
LOC: ER 22:16 → MED/SURG 02-03 03:40
PROVIDERS: ADMIT Family Medicine; ATTEND Family Medicine
DX: E80.6 Other disorders of bilirubin metabolism; R10.84 Generalized abdominal pain; R53.1 Weakness; R11.2 Nausea with vomiting, unspecified; K21.9 Gastro-esophageal reflux disease without esophagitis; Z03.818 Encounter for observation for suspected exposure to other biological agents ruled out; E11.65 Type 2 diabetes mellitus with hyperglycemia; E83.42 Hypomagnesemia; I10 Essential (primary) hypertension; R94.5 Abnormal results of liver function studies; K80.43 Calculus of bile duct with acute cholecystitis with obstruction